=== PATIENT | female | born 1995 | race African-American/Black ===

== ENCOUNTER 2024-06-02 16:40 | Emergency (ER) | payer OTHER ==
[2024-06-02 16:53] VITALS: BP 110/78; PULSE 86; RESP 18; TEMP 98.7; BMI 38.4
[2024-06-02] MEDS ORDERED: ALBUTEROL SO4 2.5/IPRATROPIUM 0.5 INH SOL 3 ML VIAL.NEB. NEB ONE (17:26)
[2024-06-02] MEDS: ALBUTEROL SO4 2.5/IPRATROPIUM 0.5 INH SOL 3 ML VIAL.NEB. NEB ONE ×2 (17:42→18:37)
[2024-06-02 20:24] LABS: HIV INTERPRETATION NEGATIVE (NEGATIVE)
== END 2024-06-02 18:49 | disposition home or self-care (01) ==
LOC: JERFT 16:40
PROC: 3E0F7GC Introduction of Other Therapeutic Substance into Respiratory Tract, Via Natural or Artificial Opening (ICD-10-PCS; principal; 2024-06-02)
PROC: 3E0F7GC Introduction of Other Therapeutic Substance into Respiratory Tract, Via Natural or Artificial Opening (ICD-10-PCS; 2024-06-02)
DX: R05.9 Cough, unspecified (principal); R09.81 Nasal congestion; J06.9 Acute upper respiratory infection, unspecified; J40 Bronchitis, not specified as acute or chronic
CPT/HCPCS: 36415; 71046-TC-FY; 86803; 87389; 99284-25